=== PATIENT | female | born 1955 | race Caucasian/White ===

== ENCOUNTER 2017-05-10 17:02 | Observation (INO) | payer BC, MEDICARE, OTHER ==
[~2017-05-10] VITALS: Ht 149.9 cm; Wt 92.0 kg
[~2017-05-10 17:02] MED LIST: CALC-793 PO; CALC625T31 PO; LACT1CAP73 PO; LANS30CA56 PO; MULT-1086 PO; PER5325T PO; PROG100C16 PO
[2017-05-10 17:34] LABS: BASOPHILS % (AUTO) 0.6 % (0-1); EOSINOPHILS # (AUTO) 0.2 X10'3 (0-0.9); EOSINOPHILS % (AUTO) 1.9 % (0-6); HEMATOCRIT 41.4 % (35.0-45.0); HEMOGLOBIN 14.1 g/dl (12.0-16.0); LYMPHOCYTES % (AUTO) 38.7 % (21-51); MEAN CORPUSCULAR HEMOGLOBIN 30.6 PG (27.0-31.0); MEAN CORPUSCULAR VOLUME 89.9 FL (78-98); MEAN PLATELET VOLUME 8.6 FL (7.4-10.4); MONOCYTES # (AUTO) 0.4 X10'3 (0-0.9); MONOCYTES % (AUTO) 5.5 % (2-12); NEUTROPHILS # (AUTO) 4.2 X10'3 (1.8-7.7); NEUTROPHILS % (AUTO) 53.3 % (42-75); PLATELET COUNT 252 X10'3 (140-440); RED BLOOD COUNT 4.61 X10'6 (4.20-5.60); RED CELL DISTRIBUTION WIDTH 13.4 % (11.5-14.5); WHITE BLOOD COUNT 7.9 X10'3 (4.5-11.0)
[2017-05-10 17:49] LABS: ALANINE AMINOTRANSFERASE 151 U/L (12-78); ALBUMIN 3.7 G/DL (3.4-5.0); ALKALINE PHOSPHATASE 121 IU/L (46-116); ANION GAP 9 (8-16); ASPARTATE AMINO TRANSFERASE 82 U/L (10-37); BILIRUBIN,TOTAL 0.3 MG/DL (0.1-1.0); BLOOD UREA NITROGEN 17 MG/DL (7-18); BUN/CREATININE RATIO 23.6 (6.6-38.0); CALCIUM 9.5 MG/DL (8.5-10.1); CHLORIDE 104 MMOL/L (99-107); CREATININE 0.72 MG/DL (0.40-0.90); GLUCOSE 112 MG/DL (70-104); POTASSIUM 3.9 MMOL/L (3.5-5.1); SODIUM 142 MMOL/L (135-145); TOTAL CARBON DIOXIDE 28.8 MMOL/L (24-32); TOTAL PROTEIN 7.3 G/DL (6.4-8.2); eGFR 82 ML/MIN
[2017-05-10] MEDS ORDERED: ketorolac tromethamine 15mg/ml inj. IV ONE (18:10)
[2017-05-10] MEDS ORDERED: normal saline 1000ML IV soln IVB ONE (18:10)
[2017-05-10] MEDS ORDERED: iohexol 300mg/ml 100ml inj. ONE (18:10)
[2017-05-10] MEDS ORDERED: ondansetron/PF 4mg/2ml inj IV PRN (19:15)
[2017-05-10 19:21] LABS: LIPASE 156 U/L (73-393)
[2017-05-10 19:22] LABS: CLARITY,URINE CLEAR (Clear); COLOR,URINE STRAW (Yellow); GLUCOSE, URINE NEGATIVE (Neg); KETONES,URINE NEGATIVE (Neg); LEUKOCYTE ESTERASE ,URINE NEGATIVE (Neg); NITRITES, URINE NEGATIVE (Neg); OCCULT BLOOD,URINE NEGATIVE (Neg); PH,URINE 6.5 (4.8-8.0); PROTEIN,URINE NEGATIVE (Neg); UROBILINOGEN,URINE 0.2 E.U/dL (0.2-1.0)
[2017-05-10 19:23] LABS: UA COLLECTION TYPE CLN CATCH MIDSTREAM
[2017-05-10] MEDS: normal saline 1000ml 1,000 ML IV SCH (19:26)
[2017-05-10] MEDS: heparin, porcine 5000 units/ml vial SQ SCH (19:34)
[2017-05-10] MEDS: pantoprazole 40 MG vial IV SCH (19:34)
[2017-05-11] VITALS (17 sets, daily range): BP systolic 105–147; BP diastolic 56–98
[2017-05-11] MEDS: morphine 4 MG/ML inj SYRINge IV PRN ×3 (03:08→14:07)
[2017-05-11] MEDS: normal saline 1000ml 1,000 ML IV SCH ×2 (05:23→15:15)
[2017-05-11] MEDS: pantoprazole 40 MG vial IV SCH ×2 (08:27→20:55)
[2017-05-11] MEDS: heparin, porcine 5000 units/ml vial SQ SCH ×2 (08:27→19:53)
[2017-05-11 08:36] LABS: ALANINE AMINOTRANSFERASE 151 U/L (12-78); ALBUMIN/GLOBULIN RATIO 1.1 (1.1-1.5); ALKALINE PHOSPHATASE 98 IU/L (46-116); ANION GAP 5 (8-16); ASPARTATE AMINO TRANSFERASE 126 U/L (10-37); BILIRUBIN,TOTAL 0.8 MG/DL (0.1-1.0); BLOOD UREA NITROGEN 12 MG/DL (7-18); BUN/CREATININE RATIO 18.8 (6.6-38.0); CALCIUM 9.2 MG/DL (8.5-10.1); CHLORIDE 110 MMOL/L (99-107); CREATININE 0.64 MG/DL (0.40-0.90); GLUCOSE 91 MG/DL (70-104); POTASSIUM 4.1 MMOL/L (3.5-5.1); SODIUM 145 MMOL/L (135-145); TOTAL CARBON DIOXIDE 30.4 MMOL/L (24-32); TOTAL PROTEIN 5.8 G/DL (6.4-8.2); eGFR > 90 ML/MIN
[2017-05-11] MEDS ORDERED: oxyCODONE IR 5mg (immed. release) tablet PO ONE (08:55)
[2017-05-11] MEDS ORDERED: normal saline 1000ml 1,000 ML IV SCH (10:48)
[2017-05-11] MEDS ORDERED: MIDAZolam 5mg/5ml vial IV PRN (10:50)
[2017-05-11] MEDS ORDERED: LIDOcaine Viscous 15ml cup PO ONE (10:50)
[2017-05-11] MEDS ORDERED: glucagon, human recombinant 1mg kit IV PRN (10:50)
[2017-05-11] MEDS ORDERED: fentaNYL/PF 50MCG/1 ML 2ML syringe IV PRN (10:50)
[2017-05-11] MEDS ORDERED: iohexol 300 MG/1 ML 50ml polymer IV ONE (10:50)
[2017-05-11] MEDS ORDERED: simethicone 40mg/0.6ml oral drops 30ml MC ONE (10:50)
[2017-05-11 11:24] LABS: URINE AMPHETAMINE SCREEN NEGATIVE (Neg); URINE BARBITUATE SCREEN NEGATIVE (Neg); URINE BENZODIAZEPINES SCREEN NEGATIVE (Neg); URINE CANNABINOID SCREEN NEGATIVE (Neg); URINE COCAINE SCREEN NEGATIVE (Neg); URINE METHADONE SCREEN NEGATIVE (Neg); URINE OPIATE SCREEN NEGATIVE (Neg); URINE PHENCYCLIDINE SCREEN NEGATIVE (Neg)
[2017-05-11] MEDS ORDERED: LIDOcaine Viscous 15ml cup ONE (11:39)
[2017-05-11] MEDS ORDERED: diphenhydrAMINE 50 mg/ml inj ONE (11:39)
[2017-05-11] MEDS ORDERED: glucagon, human recombinant 1mg kit ONE (11:39)
[2017-05-11] MEDS ORDERED: meperidine/PF 100mg/ml syringe ONE (11:39)
[2017-05-11] MEDS ORDERED: fentaNYL/PF 50MCG/1 ML 2ML syringe ONE (11:39)
[2017-05-11] MEDS ORDERED: iohexol 300 MG/1 ML 50ml polymer ONE (11:40)
[2017-05-11] MEDS ORDERED: MIDAZolam 5mg/5ml vial ONE (11:41)
[2017-05-11] MEDS ORDERED: MULT-38 PO (12:00)
[2017-05-11] MEDS ORDERED: CALC-8 PO (12:00)
[2017-05-12] MEDS: normal saline 1000ml 1,000 ML IV SCH ×2 (01:15→11:15)
[2017-05-12 06:00] VITALS: BP 111/57
[2017-05-12 06:30] LABS: ALANINE AMINOTRANSFERASE 206 U/L (12-78); ALKALINE PHOSPHATASE 113 IU/L (46-116); ANION GAP 6 (8-16); ASPARTATE AMINO TRANSFERASE 86 U/L (10-37); BILIRUBIN,TOTAL 0.5 MG/DL (0.1-1.0); BLOOD UREA NITROGEN 8 MG/DL (7-18); BUN/CREATININE RATIO 12.9 (6.6-38.0); CALCIUM 9.2 MG/DL (8.5-10.1); CHLORIDE 108 MMOL/L (99-107); CREATININE 0.62 MG/DL (0.40-0.90); GLUCOSE 90 MG/DL (70-104); POTASSIUM 3.8 MMOL/L (3.5-5.1); SODIUM 145 MMOL/L (135-145); TOTAL CARBON DIOXIDE 30.7 MMOL/L (24-32); eGFR > 90 ML/MIN
[2017-05-12] MEDS: heparin, porcine 5000 units/ml vial SQ SCH (08:00)
[2017-05-12] MEDS ORDERED: pantoprazole 40mg Tablet.DR PO SCH (08:10)
[2017-05-12 11:00] VITALS: BP 134/70
== END 2017-05-12 13:20 | disposition home or self-care (01) ==
LOC: ER 17:03 → ED HOLD 19:15 → INTOOBSV 19:15 → ORTHO 4S 05-11 07:04
PROVIDERS: ADMIT Internal Medicine; ATTEND Internal Medicine
DX: K80.50 Calculus of bile duct without cholangitis or cholecystitis without obstruction (principal); I25.10 Atherosclerotic heart disease of native coronary artery without angina pectoris; I10 Essential (primary) hypertension; K57.90 Diverticulosis of intestine, part unspecified, without perforation or abscess without bleeding; K21.9 Gastro-esophageal reflux disease without esophagitis; F32.9 Major depressive disorder, single episode, unspecified; F41.9 Anxiety disorder, unspecified; N20.0 Calculus of kidney; B17.9 Acute viral hepatitis, unspecified; D25.9 Leiomyoma of uterus, unspecified; Z87.891 Personal history of nicotine dependence; Z90.49 Acquired absence of other specified parts of digestive tract; Z96.653 Presence of artificial knee joint, bilateral; Z98.84 Bariatric surgery status
CPT/HCPCS: 36415; 43264; 74176; 74181; 80053; 80305; 81003; 83690; 85025; 85610; 87070; 96372; 96374; 96375; 96376; 99285; C9113; G0378; J1200; J1644; J1885; J2250; J2270; J2405; J3010; J7030; Q9967; A4620; G0500; J1610; J2175

== ENCOUNTER 2019-07-22 06:36 | Emergency (ER) | payer BC, MEDICARE, OTHER ==
[~2019-07-22] VITALS: Ht 149.9 cm; Wt 92.0 kg
[~2019-07-22 06:36] MED LIST changes: -CALC-793 PO; +CALC-8 PO; -CALC625T31 PO; -LACT1CAP73 PO; -MULT-1086 PO; +MULT-38 PO; -PER5325T PO; -PROG100C16 PO
[2019-07-22] MEDS ORDERED: oxyCODONE/APAP 10/325mg tablet PO ONE (07:10)
[2019-07-22] MEDS ORDERED: ibuprofen tablet 400 MG TABLET PO ONE (07:10)
[2019-07-22 09:32] VITALS: BP 128/68
== END 2019-07-22 09:35 | disposition home or self-care (01) ==
LOC: ER 06:36
DX: M25.511 Pain in right shoulder (principal); M25.531 Pain in right wrist; I25.10 Atherosclerotic heart disease of native coronary artery without angina pectoris; I10 Essential (primary) hypertension; K21.9 Gastro-esophageal reflux disease without esophagitis; G89.29 Other chronic pain; F41.9 Anxiety disorder, unspecified; F32.9 Major depressive disorder, single episode, unspecified; Z90.49 Acquired absence of other specified parts of digestive tract; Z90.710 Acquired absence of both cervix and uterus; Z98.890 Other specified postprocedural states; Z72.89 Other problems related to lifestyle; Z88.5 Allergy status to narcotic agent; Z88.8 Allergy status to other drugs, medicaments and biological substances; Z79.899 Other long term (current) drug therapy; W01.0XXA Fall on same level from slipping, tripping and stumbling without subsequent striking against object, initial encounter; Y93.89 Activity, other specified; Y92.89 Other specified places as the place of occurrence of the external cause; Y99.8 Other external cause status
CPT/HCPCS: 73030; 73060; 73110; 99284

== ENCOUNTER 2020-03-22 05:37 | Inpatient (IN) | payer BC, MEDICARE, OTHER ==
[2020-03-16 11:11] LABS: PRE OP PROTIME 10.5 SECONDS (9.0-12.0)
[2020-03-16 11:13] LABS: BASOPHILS # (AUTO) 0.1 X10'3 (0-0.2); BASOPHILS % (AUTO) 0.9 % (0-1); EOSINOPHILS # (AUTO) 0.2 X10'3 (0-0.9); EOSINOPHILS % (AUTO) 3.1 % (0-6); LYMPHOCYTES # (AUTO) 2.5 X10'3 (1.1-4.8); LYMPHOCYTES % (AUTO) 31.7 % (21-51); MEAN CORPUSCULAR HEMOGLOBIN 31.1 PG (27.0-31.0); MEAN CORPUSCULAR HGB CONC 33.6 g/dL (33.0-36.5); MEAN CORPUSCULAR VOLUME 92.8 FL (78-98); MEAN PLATELET VOLUME 8.6 FL (7.4-10.4); MONOCYTES # (AUTO) 0.5 X10'3 (0-0.9); MONOCYTES % (AUTO) 5.9 % (2-12); NEUTROPHILS # (AUTO) 4.7 X10'3 (1.8-7.7); NEUTROPHILS % (AUTO) 58.4 % (42-75); PRE OP HEMATOCRIT 40.9 % (35.0-45.0); PRE OP HEMOGLOBIN 13.7 g/dL (12.0-16.0); PRE OP PLATELET COUNT 274 X10'3 (140-440); RED BLOOD COUNT 4.41 X10'6 (4.20-5.60); RED CELL DISTRIBUTION WIDTH 13.6 % (11.5-14.5)
[2020-03-16 11:35] LABS: ALBUMIN 3.7 G/DL (3.4-5.0); ALBUMIN/GLOBULIN RATIO 1.1 (1.1-1.5); ALKALINE PHOSPHATASE 83 IU/L (46-116); BLOOD UREA NITROGEN 17 MG/DL (7-18); CALCIUM 9.2 MG/DL (8.5-10.1); CHLORIDE 107 MMOL/L (99-107); PRE OP ALT 30 U/L (30-65); PRE OP ANION GAP 7 (8-16); PRE OP AST 17 U/L (10-37); PRE OP BILIRUB, TOTAL 0.3 MG/DL (0.0-1.0); PRE OP GLUCOSE 105 MG/DL (70-104); PRE OP POTASSIUM 4.2 MMOL/L (3.4-5.1); PRE OP SODIUM 143 MMOL/L (135-145); TOTAL CARBON DIOXIDE 29.4 MMOL/L (24-32)
[2020-03-16 11:37] LABS: BUN/CREATININE RATIO 29.8 (6.6-38.0); CREATININE 0.57 MG/DL (0.40-0.90); eGFR > 90 ML/MIN
[2020-03-22] VITALS (18 sets, daily range): BP systolic 102–144; BP diastolic 60–84
[~2020-03-22] VITALS: Ht 149.9 cm; Wt 93.9 kg
[~2020-03-22 05:37] MED LIST changes: +CALC-336 PO; -CALC-8 PO; +CHOL10005 PO; +MESSAGE TO NURSING IV ONE; +famotidine 20mg tablet PO ONE; +ringers solution, lacted 1,000 ML IV SCH
[2020-03-22] MEDS ORDERED: ceFAZolin 2gm in dextrose, iso 50 ML IV ONE (06:33)
[2020-03-22] MEDS ORDERED: VANCOMYCIN 1,500MG inj. 1,500 MG in normal saline 500ml IV soln 300 ML IV ONE (06:33)
[2020-03-22] MEDS ORDERED: ROPIVAcaine 0.5% (5mg/ml) 30ml vial ONE ×2 (06:46→08:08)
[2020-03-22] MEDS ORDERED: ketorolac trometh. 30mg/ml inj. ONE (06:46)
[2020-03-22] MEDS ORDERED: fentaNYL/PF 50MCG/1 ML 2ML syringe ONE (08:07)
[2020-03-22] MEDS ORDERED: MIDAZolam 5mg/5ml vial ONE (08:08)
[2020-03-22] MEDS ORDERED: LIDOcaine 2% (20mg/ml) 5ml vial ONE (08:08)
[2020-03-22] MEDS ORDERED: propofol inj 20 ML IV ONE (08:08)
[2020-03-22] MEDS ORDERED: rocuronium 10mg/ml inj IV ONE (08:09)
[2020-03-22] MEDS ORDERED: tranexamic acid inj. 1,000 MG in normal saline 100ml IV soln 100 ML IV ONE ×3 (08:20→13:00)
[2020-03-22] MEDS ORDERED: ondansetron/PF 4mg/2ml inj ONE (08:57)
[2020-03-22] MEDS ORDERED: proCHLORperazine 10 MG/2 ml inj IV PRN (09:25)
[2020-03-22] MEDS ORDERED: ROPIVAcaine 0.2% (10 MG/5 ML) BOLUS INJECTION INTERSCALE PRN (09:25)
[2020-03-22] MEDS ORDERED: ROPIVAcaine 0.2%/PF PUMP/bolus 550 ML INTERSCALE SCH (09:25)
[2020-03-22] MEDS ORDERED: ringers solution, lacted 1,000 ML IV SCH (09:25)
[2020-03-22] MEDS ORDERED: morphine 4 MG/ML inj SYRINge IV PRN (09:25)
[2020-03-22] MEDS ORDERED: ondansetron/PF 4mg/2ml inj IV PRN ×2 (09:25→10:30)
[2020-03-22] MEDS ORDERED: morphine 2 MG/ML inj. syringe IV PRN (09:25)
[2020-03-22] MEDS ORDERED: meperidine/PF 25mg/ml syringe IV PRN ×3 (09:25)
--- NOTE | 2020-03-22 10:15 | NUR ---
ADMITTED TO PACU FROM OR ACCOMPANIED BY ANESTHESIA. INTIAL PHYSICAL ASSESSMENT DONE AND RECORDED. REPORT RECEIVED FROM ANESTHESIA.
[2020-03-22] MEDS ORDERED: diphenhydrAMINE 25mg capsule PO PRN ×2 (10:30)
[2020-03-22] MEDS ORDERED: acetaminophen 325mg tablet PO PRN (10:30)
[2020-03-22] MEDS ORDERED: oxyCODONE IR 5mg (immed. release) tablet PO PRN ×2 (10:30)
[2020-03-22] MEDS ORDERED: HYDROmorphone 1 mg/ml syringe IV PRN (10:30)
[2020-03-22] MEDS ORDERED: HYDROmorphone inj. 0.5 MG/0.5 ML DISP.SYRIN IV PRN (10:30)
[2020-03-22] MEDS ORDERED: magnesium hydroxide 30ml (MOM) UD suspension PO PRN (10:30)
[2020-03-22] MEDS ORDERED: bisacodyl 10mg suppository rectal RC PRN (10:30)
--- NOTE | 2020-03-22 11:12 | NUR ---
Patient in room [facility]. I have received report from Willow TOPETEsenior qa engineer and had the opportunity to ask questions and will assume pt's care once to unit.
--- NOTE | 2020-03-22 11:20 | NUR ---
Patient in room [facility] 900. I have received report from Willow TOPETEstringing machine operator and had the opportunity to ask questions. Will assume pt care once on Surgical Unit.
--- NOTE | 2020-03-22 11:30 | NUR ---
PACU DISCHARGE CRITERIA MET, REPORT GIVEN TO FLOOR. DENIES PAIN OR DISCOMFORT, TRANSFERRED TO ROOM IN STABLE GOOD CONDITION.
--- NOTE | 2020-03-22 11:40 | NUR ---
Pt arrived to Surgical floor, to room 344B. Pt A&Ox4, no s/sx discomfort, no s/sx distress, no c/o. R shoulder dressing CD&I. OnQ set at 4lm/hr, pt educated in use. PIV patent, infusing per MD fluids. VSS. Pt oriented to room. Will continue to monitor.
[2020-03-22] MEDS: acetaminophen 325mg tablet PO SCH ×2 (14:49→20:02)
[2020-03-22] MEDS: potassium cl 20mEq in 1/2 NS 1,000 ML IV SCH ×2 (14:49→20:06)
[2020-03-22] MEDS: ceFAZolin/D5W- 1GM premix 50 ML IV SCH (16:48)
--- NOTE | 2020-03-22 18:32 | NUR ---
Problems reprioritized. Patient report given, questions answered & plan of care reviewed with Tanisha TOPETE.
--- NOTE | 2020-03-22 19:08 | NUR ---
Patient in room [facility]. I have received report from Niyah TOPETE and had the opportunity to ask questions and assume patient care.
[2020-03-22] MEDS ORDERED: vancomycin/NS 1 GM ADD-VANTAGE 250 ML IV SCH (20:00)
[2020-03-22] MEDS: pantoprazole 40mg Tablet.DR PO SCH (20:02)
[2020-03-22] MEDS ORDERED: sennosides 8.6mg tablet PO SCH (21:00)
[2020-03-23] MEDS: ceFAZolin/D5W- 1GM premix 50 ML IV SCH (00:02)
[2020-03-23] MEDS: acetaminophen 325mg tablet PO SCH ×2 (02:00→08:33)
[2020-03-23] MEDS: potassium cl 20mEq in 1/2 NS 1,000 ML IV SCH (04:00)
[2020-03-23 05:00] VITALS: BP 138/78
--- NOTE | 2020-03-23 06:08 | NUR ---
Problems reprioritized. Patient report given, questions answered & plan of care reviewed with Diego TOPETE.
--- NOTE | 2020-03-23 06:08 | NUR ---
Patient in room [facility]. I have received report from Tanisha TOPETE and had the opportunity to ask questions and assume patient care.
[2020-03-23 06:18] LABS: BASOPHILS % (AUTO) 0.2 % (0-1); EOSINOPHILS % (AUTO) 0.1 % (0-6); HEMATOCRIT 36.1 % (35.0-45.0); HEMOGLOBIN 11.9 g/dl (12.0-16.0); LYMPHOCYTES # (AUTO) 2.6 X10'3 (1.1-4.8); LYMPHOCYTES % (AUTO) 18.5 % (21-51); MEAN CORPUSCULAR HEMOGLOBIN 30.7 PG (27.0-31.0); MEAN CORPUSCULAR HGB CONC 33.1 g/dL (33.0-36.5); MEAN CORPUSCULAR VOLUME 92.8 FL (78-98); MEAN PLATELET VOLUME 8.9 FL (7.4-10.4); MONOCYTES % (AUTO) 6.8 % (2-12); NEUTROPHILS # (AUTO) 10.7 X10'3 (1.8-7.7); NEUTROPHILS % (AUTO) 74.4 % (42-75); PLATELET COUNT 235 X10'3 (140-440); RED BLOOD COUNT 3.89 X10'6 (4.20-5.60); RED CELL DISTRIBUTION WIDTH 13.3 % (11.5-14.5); WHITE BLOOD COUNT 14.3 X10'3 (4.5-11.0)
[2020-03-23 06:32] LABS: ANION GAP 10 (8-16); CHLORIDE 109 MMOL/L (99-107); POTASSIUM 4.3 MMOL/L (3.5-5.1); SODIUM 142 MMOL/L (135-145); TOTAL CARBON DIOXIDE 23.3 MMOL/L (24-32)
[2020-03-23 07:00] VITALS: BP 138/87
[2020-03-23] MEDS ORDERED: aspirin 325mg tablet PO SCH (08:30)
[2020-03-23] MEDS: pantoprazole 40mg Tablet.DR PO SCH (08:34)
[2020-03-23] MEDS ORDERED: ASPI-1 PO (09:07)
--- NOTE | 2020-03-23 10:16 | NUR ---
Discharge instructions given to patient, patient verbalized understanding of all instructions made. Peripheral IV catheter removed, tip intact. Instructed patient to ensure she has all her belongings with her before leaving the hospital. Patient has OnQ ball and verbalized understanding on how to manage her pain with the OnQ pump, she also confirmed to me that she has prescribed pain medication already at home. Shoulder precaution was discussed with the patient during discharge instruction.
[2020-03-24] MEDS ORDERED: acetaminophen 325mg tablet PO PRN (10:30)
--- NOTE | 2020-03-24 14:18 | NUR ---
CASE MANAGEMENT DISCHARGE FOLLOW UP: T/c to pt, no answer, left message requesting callback.
== END 2020-03-23 10:36 | disposition home or self-care (01) | DRG 483 ==
LOC: UNDOADMIN 05:37 → PAS IN 05:37 → EDSTATUS 08:30 → PAS IN 10:29 → SUR 3N 11:37
PROVIDERS: ADMIT Orthopaedic Surgery; ATTEND Orthopaedic Surgery
PROC: 0LS30ZZ Reposition Right Upper Arm Tendon, Open Approach (ICD-10-PCS; 2020-03-22)
PROC: 3E0T3BZ Introduction of Anesthetic Agent into Peripheral Nerves and Plexi, Percutaneous Approach (ICD-10-PCS; 2020-03-22)
PROC: 0RRJ00Z Replacement of Right Shoulder Joint with Reverse Ball and Socket Synthetic Substitute, Open Approach (ICD-10-PCS; principal; 2020-03-22 08:09)
DX: M19.011 Primary osteoarthritis, right shoulder (principal); D62 Acute posthemorrhagic anemia; Z68.41 Body mass index [BMI] 40.0-44.9, adult; M75.41 Impingement syndrome of right shoulder; E66.9 Obesity, unspecified; M75.121 Complete rotator cuff tear or rupture of right shoulder, not specified as traumatic; M75.21 Bicipital tendinitis, right shoulder; K21.9 Gastro-esophageal reflux disease without esophagitis; Z88.5 Allergy status to narcotic agent; Z88.8 Allergy status to other drugs, medicaments and biological substances; Z79.899 Other long term (current) drug therapy
CPT/HCPCS: 36415; 80051; 80053; 82948; 85025; 85610; 85730; 87081; 87635; 93005; 97110; 97116; 97162; 97530; G0378; J0690; J1885; J2001; J2250; J2405; J2704; J2795; J3010; J3370; J3480; J7040; J7120

== ENCOUNTER 2020-07-28 17:42 | Emergency (ER) | payer BC, MEDICARE, OTHER ==
[~2020-07-28] VITALS: Ht 149.9 cm; Wt 86.4 kg
[~2020-07-28 17:42] MED LIST changes: +ASPI-1 PO; -MESSAGE TO NURSING IV ONE; -famotidine 20mg tablet PO ONE; -ringers solution, lacted 1,000 ML IV SCH
[2020-07-28 18:16] VITALS: BP 152/100
== END 2020-07-28 20:12 | disposition home or self-care (01) ==
LOC: ER 17:42
DX: M25.511 Pain in right shoulder (principal); I25.10 Atherosclerotic heart disease of native coronary artery without angina pectoris; I10 Essential (primary) hypertension; K21.9 Gastro-esophageal reflux disease without esophagitis; G89.29 Other chronic pain; F41.9 Anxiety disorder, unspecified; F32.9 Major depressive disorder, single episode, unspecified; Z90.89 Acquired absence of other organs; Z90.49 Acquired absence of other specified parts of digestive tract; Z98.890 Other specified postprocedural states; Z72.89 Other problems related to lifestyle; Z88.5 Allergy status to narcotic agent; Z88.8 Allergy status to other drugs, medicaments and biological substances; Z79.82 Long term (current) use of aspirin; Z79.899 Other long term (current) drug therapy
CPT/HCPCS: 73030; 99283